=== PATIENT | female | born 1990 ===

== ENCOUNTER 2017-02-27 18:01 | Emergency (ER) | payer BC ==
[2017-02-27 18:35] VITALS: BP 110/71
[2017-02-27] MEDS ORDERED: Tetan/Diph/Pertus SYR(Tdap)* 0.5 ML SYR(BOOSTRIX) use SYR IM ONE (19:31)
[2017-02-27] MEDS ORDERED: Amoxicillin/Clavulanate TAB* 875 MG PO ONE (19:32)
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
== END 2017-02-27 19:57 | disposition home or self-care (01) ==
LOC: UCCORT 18:01
DX: S51.851A Open bite of right forearm, initial encounter (principal); W54.0XXA Bitten by dog, initial encounter; Y93.9 Activity, unspecified; Y92.9 Unspecified place or not applicable; Y99.9 Unspecified external cause status; Z23 Encounter for immunization
CPT/HCPCS: 90471; 90715; 99213; A9270-GY; G0463